=== PATIENT | female | born 1950 | race Caucasian/White ===

== ENCOUNTER 2017-03-22 19:26 | Emergency (ER) | payer OTHER ==
[~2017-03-22] VITALS: Ht 160 cm; Wt 58.1 kg
[2017-03-22 23:40] VITALS: BP 110/66
== END 2017-03-22 23:40 | disposition home or self-care (01) ==
LOC: EME 19:26
DX: S00.83XA Contusion of other part of head, initial encounter (principal); W01.198A Fall on same level from slipping, tripping and stumbling with subsequent striking against other object, initial encounter; J45.909 Unspecified asthma, uncomplicated; Z79.82 Long term (current) use of aspirin; F32.9 Major depressive disorder, single episode, unspecified; K21.9 Gastro-esophageal reflux disease without esophagitis; Z87.891 Personal history of nicotine dependence; Z88.8 Allergy status to other drugs, medicaments and biological substances
CPT/HCPCS: 70450; 70486; 99281; 99284

== ENCOUNTER 2017-05-11 23:30 | Emergency (ER) | payer OTHER ==
[~2017-05-11] VITALS: Ht 157.5 cm; Wt 57.3 kg
[2017-05-12] MEDS ORDERED: PREDNISONE20 MG PO (00:24)
[2017-05-12] MEDS ORDERED: ZITHROMAX Z-PA250 MG PO (00:24)
[2017-05-12] MEDS ORDERED: TESSALON PERLE100 MG PO (00:43)
[2017-05-12 01:50] VITALS: BP 115/80
== END 2017-05-12 01:51 | disposition home or self-care (01) ==
LOC: EME 23:30
DX: J20.9 Acute bronchitis, unspecified (principal); Z87.891 Personal history of nicotine dependence; K21.9 Gastro-esophageal reflux disease without esophagitis; F32.9 Major depressive disorder, single episode, unspecified; J45.909 Unspecified asthma, uncomplicated
CPT/HCPCS: 71046; 99281; 99284; J2930